=== PATIENT | male | born 1975 | race Caucasian/White ===

== ENCOUNTER → 2017-07-30 | Outpatient (CLI) | payer BC ==
[~2017-07-30] VITALS: Ht 167.6 cm; Wt 113.5 kg
[~2017-07-30] MED LIST: ALDACTONE 100M100 MG PO; GLUCOPHAGE1000 MG PO; LASIX 40MG TABL40 MG PO
[2017-07-30 12:08] VITALS: BP 136/94; PULSE 100
[2017-07-30 12:48] LABS: INR 1.5 (0.8-3.0); PROTHROMBIN TIME 17.1 SECONDS (9.7-12.8)
[2017-07-30 15:20] VITALS: BP 126/79; PULSE 92
[2017-07-30 15:59] LABS: PERITONEAL -POLYMORPHONUCLEAR 6.2 % (0-25); PERITONEAL FLUID RBC 0 /mm3 (0-0)
== END ==
LOC: COL.RAD 11:50
PROVIDERS: Family Medicine; Physician Assistant
DX: K74.60 Unspecified cirrhosis of liver (principal); R18.8 Other ascites; K75.81 Nonalcoholic steatohepatitis (NASH); D69.6 Thrombocytopenia, unspecified; R53.83 Other fatigue; R16.1 Splenomegaly, not elsewhere classified
CPT/HCPCS: 19804

== ENCOUNTER 2017-08-02 09:16 | Day surgery (SDC) | payer BC ==
[~2017-08-02] VITALS: Ht 167.6 cm; Wt 103.4 kg
[2017-08-02 09:56] VITALS: PULSE 89; TEMP 99
[2017-08-02 11:52] VITALS: BP 135/97; PULSE 96; TEMP 97.8
[2017-08-02 12:10] VITALS: BP 137/81; PULSE 91
[2017-08-02 12:40] VITALS: BP 135/91; PULSE 94
[2017-08-02 13:05] VITALS: BP 138/90; PULSE 98
== END 2017-08-02 13:00 | disposition home or self-care (01) ==
LOC: SDCO 09:16
DX: D12.5 Benign neoplasm of sigmoid colon (principal); K57.30 Diverticulosis of large intestine without perforation or abscess without bleeding; K74.60 Unspecified cirrhosis of liver; I85.10 Secondary esophageal varices without bleeding
CPT/HCPCS: J2250; J2405; J3010; J7030

== ENCOUNTER → 2017-08-28 | Outpatient (CLI) | payer BC | LOC: COL.RAD 08:08 | DX: K74.60 Unspecified cirrhosis of liver (principal); R18.8 Other ascites; K75.81 Nonalcoholic steatohepatitis (NASH); R74.8 Abnormal levels of other serum enzymes; K76.6 Portal hypertension; R16.1 Splenomegaly, not elsewhere classified | CPT/HCPCS: A9585 ==

== ENCOUNTER 2017-10-04 10:09 | Day surgery (SDC) | payer BC ==
[~2017-10-04] VITALS: Ht 167.6 cm; Wt 101.7 kg
[~2017-10-04 10:09] MED LIST changes: +L-CARNITINE500 M1 PO; +ZYRTEC 10MG10 MG PO
[2017-10-04 11:00] VITALS: BP 118/70; PULSE 65; TEMP 97.2
[2017-10-04] MEDS ORDERED: CORGARD40 MG PO (11:06)
[2017-10-04 12:40] VITALS: BP 123/79; PULSE 74; TEMP 97.4
[2017-10-04 12:55] VITALS: BP 132/70; PULSE 75
[2017-10-04 13:10] VITALS: BP 127/76; PULSE 76
[2017-10-04 13:19] VITALS: BP 128/83; PULSE 82
== END 2017-10-04 13:40 | disposition home or self-care (01) ==
LOC: SDCO 10:09
DX: I85.00 Esophageal varices without bleeding (principal); K74.60 Unspecified cirrhosis of liver; E11.9 Type 2 diabetes mellitus without complications; D69.6 Thrombocytopenia, unspecified; R16.1 Splenomegaly, not elsewhere classified; K76.0 Fatty (change of) liver, not elsewhere classified; Z79.84 Long term (current) use of oral hypoglycemic drugs
CPT/HCPCS: J2250; J2405; J3010; J7030

== ENCOUNTER 2017-11-22 08:07 | Day surgery (SDC) | payer OTHER ==
[~2017-11-22] VITALS: Ht 167.6 cm; Wt 104.2 kg
[~2017-11-22 08:07] MED LIST changes: +CORGARD40 MG PO
[2017-11-22 08:48] VITALS: BP 108/66; PULSE 61; TEMP 98.1
[2017-11-22 09:35] VITALS: BP 123/86; PULSE 72; TEMP 97.4
[2017-11-22 09:50] VITALS: BP 110/70; PULSE 72
[2017-11-22 10:05] VITALS: BP 111/70; PULSE 63
== END 2017-11-22 10:35 | disposition home or self-care (01) ==
LOC: SDCO 08:07
DX: I85.00 Esophageal varices without bleeding (principal); K74.60 Unspecified cirrhosis of liver; K76.0 Fatty (change of) liver, not elsewhere classified; E11.9 Type 2 diabetes mellitus without complications; D69.6 Thrombocytopenia, unspecified; Z83.71 Family history of colonic polyps; Z87.891 Personal history of nicotine dependence
CPT/HCPCS: OP; J2250; J2405; J3010; J7030

== ENCOUNTER → 2018-02-14 | Outpatient (CLI) | payer OTHER | LOC: COL.RAD 06:59 | DX: K74.60 Unspecified cirrhosis of liver (principal); K76.0 Fatty (change of) liver, not elsewhere classified; D69.6 Thrombocytopenia, unspecified ==

== ENCOUNTER 2018-05-30 08:11 | Day surgery (SDC) | payer OTHER ==
[~2018-05-30] VITALS: Ht 167.6 cm; Wt 114.6 kg
[~2018-05-30 08:11] MED LIST changes: -GLUCOPHAGE1000 MG PO; +GLUCOPHAGE500 MG/TAB PO
[2018-05-30] MEDS ORDERED: VITAMIN A10k PO (08:28)
[2018-05-30] MEDS ORDERED: D3-5050000 IU PO (08:29)
[2018-05-30] MEDS ORDERED: GLUCERNA 240 M240 ML PO (08:30)
[2018-05-30] MEDS ORDERED: OZEMPIC1 MG/0.75 SQ (08:30)
[2018-05-30] MEDS ORDERED: PROBIOTIC FORMU1 CAP PO (08:31)
[2018-05-30 08:58] VITALS: BP 110/64; PULSE 73; TEMP 97.8
[2018-05-30 09:35] VITALS: BP 118/83; PULSE 87; TEMP 97.4
[2018-05-30 09:45] VITALS: BP 115/89; PULSE 92
[2018-05-30 10:00] VITALS: BP 114/78; PULSE 84
[2018-05-30 15:23] VITALS: BP 121/87; PULSE 90
== END 2018-05-30 10:15 | disposition home or self-care (01) ==
LOC: SDCO 08:11
DX: I85.00 Esophageal varices without bleeding (principal); K74.60 Unspecified cirrhosis of liver; Z79.899 Other long term (current) drug therapy; E11.8 Type 2 diabetes mellitus with unspecified complications; D69.6 Thrombocytopenia, unspecified; Z79.84 Long term (current) use of oral hypoglycemic drugs; R16.1 Splenomegaly, not elsewhere classified; K76.0 Fatty (change of) liver, not elsewhere classified; K75.81 Nonalcoholic steatohepatitis (NASH)
CPT/HCPCS: J2250; J3010; J7030

== ENCOUNTER → 2018-06-10 | Outpatient (CLI) | payer OTHER ==
[~2018-06-10] MED LIST changes: +D3-5050000 IU PO; +GLUCERNA 240 M240 ML PO; +OZEMPIC1 MG/0.75 SQ; +PROBIOTIC FORMU1 CAP PO; +VITAMIN A10k PO
== END ==
LOC: COL.RAD 07:23
DX: Z13.89 Encounter for screening for other disorder (principal); K74.60 Unspecified cirrhosis of liver; K75.81 Nonalcoholic steatohepatitis (NASH)

== ENCOUNTER → 2018-12-12 | Outpatient (CLI) | payer OTHER | LOC: COL.RAD 07:54 | DX: K75.81 Nonalcoholic steatohepatitis (NASH) (principal) ==

== ENCOUNTER → 2019-05-28 | Outpatient (CLI) | payer OTHER | LOC: COL.RAD 07:37 | DX: K75.81 Nonalcoholic steatohepatitis (NASH) (principal) ==

== ENCOUNTER 2019-06-12 08:03 | Day surgery (SDC) | payer OTHER ==
[~2019-06-12] VITALS: Ht 167.6 cm; Wt 113.0 kg
[~2019-06-12 08:03] MED LIST changes: -D3-5050000 IU PO; +MASON NATURAL2000 IU PO
[2019-06-12] MEDS ORDERED: INSPRA50 MG PO (08:45)
[2019-06-12 10:10] VITALS: BP 112/82; PULSE 76; TEMP 97.4
--- NOTE | 2019-06-12 10:10 | NUR ---
Patient brought back to bay 4. Alert remains drowsy at this time. Vital signs stable. States he would like some water. Tolerating well. Patients at bedside. Call segundo within reach, will continue to monitor.
[2019-06-12 10:25] VITALS: BP 117/77; PULSE 72
--- NOTE | 2019-06-12 10:25 | NUR ---
Vital signs stable. Patient states he is feeling well. Remains drowsy at this time. remains at bedside. All safety maintained. Will continue to monitor.
[2019-06-12 10:35] VITALS: BP 106/72; PULSE 73; TEMP 97.8
--- NOTE | 2019-06-12 10:40 | NUR ---
Patient states he is feeling ready to go home at this time. Vital signs stable. Will continue to monitor.
[2019-06-12 10:54] VITALS: BP 101/71; PULSE 72
--- NOTE | 2019-06-12 10:55 | NUR ---
Discharge instructions reviewed with patient and family. All questions answered. Patient to get dressed at this time.
--- NOTE | 2019-06-12 11:00 | NUR ---
Patient brought down to lobby via wheel chair. Patient to be driven home by and friend.
== END 2019-06-12 11:00 | disposition home or self-care (01) ==
LOC: SDCO 08:03
DX: K74.60 Unspecified cirrhosis of liver (principal); I85.10 Secondary esophageal varices without bleeding; K76.0 Fatty (change of) liver, not elsewhere classified; E11.9 Type 2 diabetes mellitus without complications; R16.1 Splenomegaly, not elsewhere classified; D69.6 Thrombocytopenia, unspecified; Z88.0 Allergy status to penicillin; Z79.84 Long term (current) use of oral hypoglycemic drugs; Z83.79 Family history of other diseases of the digestive system; Z83.71 Family history of colonic polyps; Z87.891 Personal history of nicotine dependence
CPT/HCPCS: J2250; J3010; J7030

== ENCOUNTER → 2019-12-14 | Outpatient (CLI) | payer OTHER ==
[~2019-12-14] MED LIST changes: +INSPRA50 MG PO
== END ==
LOC: COL.RAD 08:15
DX: K75.81 Nonalcoholic steatohepatitis (NASH) (principal); K74.60 Unspecified cirrhosis of liver

== ENCOUNTER 2019-12-18 08:03 | Day surgery (SDC) | payer OTHER ==
[~2019-12-18] VITALS: Ht 167.6 cm; Wt 108.8 kg
[2019-12-18 08:11] VITALS: BP 138/73; PULSE 77; TEMP 97.8
[2019-12-18] MEDS ORDERED: CANA100T PO (08:19)
[2019-12-18 10:10] VITALS: BP 108/82; PULSE 85; TEMP 97.4
--- NOTE | 2019-12-18 10:10 | NUR ---
Pt returns from procedure to endo bay 7. Pt ambulates from cart to recliner with steady gait and RN assist without complications. Monitors on and alarms set. Call light within reach. Family present in room. Pt requests muffin and ice water. Pt has no complaints except a little soreness in his throat. No reports of nausea. Pt alert and oriented.
[2019-12-18 10:15] VITALS: BP 113/77; PULSE 76
[2019-12-18 10:30] VITALS: BP 98/66; PULSE 80
--- NOTE | 2019-12-18 10:30 | NUR ---
Pt taking food and drink well. No complications voiced by patient.
[2019-12-18 10:45] VITALS: BP 109/79; PULSE 68
--- NOTE | 2019-12-18 10:48 | NUR ---
Discharge instructions given to patient and family. All questions answered to their satisfaction. Handed to them are a thank you card, discharge instructions, diagnosis information, procedural photos, and a discharge med list.
--- NOTE | 2019-12-18 11:05 | NUR ---
Pt transferred out of hospital via wheelchair and Jyotsna, nursing program chair, to waiting vehicle driven by family.
== END 2019-12-18 11:07 | disposition home or self-care (01) ==
LOC: SDCO 08:03
DX: I85.00 Esophageal varices without bleeding (principal); K29.50 Unspecified chronic gastritis without bleeding; K74.60 Unspecified cirrhosis of liver; K75.81 Nonalcoholic steatohepatitis (NASH); D69.6 Thrombocytopenia, unspecified; I10 Essential (primary) hypertension; Z88.0 Allergy status to penicillin; Z79.899 Other long term (current) drug therapy; Z79.84 Long term (current) use of oral hypoglycemic drugs; Z90.89 Acquired absence of other organs
CPT/HCPCS: J2405; J7030

== ENCOUNTER 2020-03-25 07:27 | Day surgery (SDC) | payer OTHER ==
[~2020-03-25] VITALS: Ht 167.6 cm; Wt 109.1 kg
[~2020-03-25 07:27] MED LIST changes: +CANA100T PO
[2020-03-25 07:44] VITALS: BP 101/70; PULSE 71; TEMP 98.6
[2020-03-25] MEDS ORDERED: [UNRECOGNIZED DRUG - OTHER] (08:24)
[2020-03-25 08:55] VITALS: BP 120/79; PULSE 80
--- NOTE | 2020-03-25 08:55 | NUR ---
Patient returns to bay 3 per cart after having EGD. Assisted from cart to recliner with two person assist. IV fluids infusing and site is free of redness. Spouse in room. Surgical masks maintained in place. Patient denies difficulty swallowing or nausea. Given sips of water to drink.
[2020-03-25 09:10] VITALS: BP 122/59; PULSE 78
--- NOTE | 2020-03-25 09:10 | NUR ---
Resting without complaints. IV fluids infusing and spouse in room. Tolerates water. Offered snack and states that he is not hungry and wishes to wait.
[2020-03-25 09:25] VITALS: BP 108/76; PULSE 75
--- NOTE | 2020-03-25 09:25 | NUR ---
Dr. Luciano here to talk with the patient and spouse and all questions answered. IV discontinued and dresses self.
--- NOTE | 2020-03-25 09:35 | NUR ---
Tolerates activiy well and denies nausea. Offered snack and declines.
--- NOTE | 2020-03-25 09:37 | NUR ---
Dismissal instructions given and signed. Provided office number for questions and concerns.
--- NOTE | 2020-03-25 09:40 | NUR ---
Dismissed to home driven by spouse and taken to the front door per wheelchair by this RN and assisted into car with instructions in hand.
== END 2020-03-25 09:40 | disposition home or self-care (01) ==
LOC: SDCO 07:27
DX: I85.00 Esophageal varices without bleeding (principal); K74.60 Unspecified cirrhosis of liver; Z88.0 Allergy status to penicillin; Z79.899 Other long term (current) drug therapy; E11.9 Type 2 diabetes mellitus without complications; Z79.84 Long term (current) use of oral hypoglycemic drugs; R16.1 Splenomegaly, not elsewhere classified; Z83.71 Family history of colonic polyps; Z87.891 Personal history of nicotine dependence; I10 Essential (primary) hypertension; K75.81 Nonalcoholic steatohepatitis (NASH); D69.6 Thrombocytopenia, unspecified
CPT/HCPCS: J2704; J7030

== ENCOUNTER → 2020-06-08 | Outpatient (CLI) | payer OTHER ==
[~2020-06-08] MED LIST changes: +[UNRECOGNIZED DRUG - OTHER]
== END ==
LOC: COL.RAD 09:37
DX: K70.30 Alcoholic cirrhosis of liver without ascites (principal); R16.1 Splenomegaly, not elsewhere classified

== ENCOUNTER 2020-07-01 06:29 | Day surgery (SDC) | payer OTHER ==
[~2020-07-01] VITALS: Ht 167.6 cm; Wt 107.7 kg
[2020-07-01 06:41] VITALS: BP 117/76; PULSE 74; TEMP 98.1
[2020-07-01] MEDS ORDERED: JARDIANCE25 PO (06:52)
[2020-07-01 07:55] VITALS: BP 124/84; PULSE 78; TEMP 97.4
--- NOTE | 2020-07-01 07:55 | NUR ---
PT TRANSPORTED PER CART FROM GI SUITE ACCOMPANIED BY ENDO NURSE TO [facility]. PATIENT UNSTEADY ON HIS FEET AND WOBBLY. PATIENT ASSISTED BY 2 WITH STANDY STAFF THAT MOVED CHAIR TO PIVOTE PATIENT FROM CART TO CHAIR. PATIENT TALKS WITH STAFF AND AT CHAIR SIDE. VSS ON ROOM AIR. 0800 PATIENT GIVEN ORANGE JUICE AND JELLO. PATIENT MORE ALERT.
--- NOTE | 2020-07-01 08:05 | NUR ---
VSS ON ROOM AIR. PATIENT EATS ALITTLE JELLOW AND DRINKS ALITTLE OJ. PATIENT IS HICCUPING. PATIENT THEN HAS AN EMSIS OF JELLO AND OJ. PATIENT ENCOURAGE TO WAIT BEFORE TRYING AGAIN.
[2020-07-01 08:15] VITALS: BP 113/70; PULSE 77
--- NOTE | 2020-07-01 08:20 | NUR ---
VSS ON ROOM AIR. PATIENT HAS ANOTHER EMESIS BUT STATES HE IS FEELING BETTER. AT BEDSIDE ENCOURAGING PATIENT.
--- NOTE | 2020-07-01 08:25 | NUR ---
PATIENT STATES HE IS FEELING BETTER. ALERT AND ORIENTED AND TALKING WITH .
[2020-07-01 08:30] VITALS: BP 113/83; PULSE 57
--- NOTE | 2020-07-01 08:30 | NUR ---
VSS ON ROOM AIR. PATIENT STATES FEELING BETTER. NO HICCUPS. PATIENT DRANK OJ.
--- NOTE | 2020-07-01 08:39 | NUR ---
PATIENT EATS JELLO AND STATES HE IS DOING FINE. DENIES DISCOMFORT AND NAUSEA AT THIS TIME.
[2020-07-01 08:45] VITALS: BP 119/82; PULSE 76
--- NOTE | 2020-07-01 08:50 | NUR ---
VSS ON ROOM AIR. PATIENT STATES HE IS DOING FINE. DISCHARGE INSTRUCTIONS GIVEN VERBAL AND DISCHARGE PACKET GIVEN TO PATIENT. QUESTIONS ANSWERED AND PATIENT VOICED UNDERSTANDING. IV SITE DC'D WITH CATHETER TIP INTACT. PRESSURE AND BANDAGE APPLIED. PATIENT CHANGES INTO STREET CLOTHES.
--- NOTE | 2020-07-01 09:00 | NUR ---
PATIENT DISCHARGED PER WHEEL CHAIR ACCOMPANIED BY AMBULATORY STAFF. DRIVING [facility]. PATIENT ASSISTED TO [facility].
== END 2020-07-01 09:00 | disposition home or self-care (01) ==
LOC: SDCO 06:29
DX: K74.60 Unspecified cirrhosis of liver (principal); I85.10 Secondary esophageal varices without bleeding; K29.30 Chronic superficial gastritis without bleeding; K76.0 Fatty (change of) liver, not elsewhere classified; E11.9 Type 2 diabetes mellitus without complications; R16.1 Splenomegaly, not elsewhere classified; Z87.891 Personal history of nicotine dependence; Z88.0 Allergy status to penicillin; I10 Essential (primary) hypertension; Z79.84 Long term (current) use of oral hypoglycemic drugs
CPT/HCPCS: J2704; J7030

== ENCOUNTER 2020-08-26 06:53 | Day surgery (SDC) | payer OTHER ==
[2020-08-26] VITALS (7 sets, daily range): BP systolic 106–118; BP diastolic 66–83; PULSE 66–83; TEMP 97.7–98.4
[~2020-08-26] VITALS: Ht 167.6 cm; Wt 106.5 kg
[~2020-08-26 06:53] MED LIST changes: +JARDIANCE25 PO
[2020-08-26] MEDS ORDERED: BENTYL 20MG20 MG/TAB PO (08:12)
--- NOTE | 2020-08-26 08:40 | NUR ---
Pt returns from Endo procedure via cart. Pt ambulates from cart to recliner with RN assist. Pt remains tired. present in room. Report received from Endo RN. Call light within reach. Monitors on and alarms set. Pt drowsy, and will wait to offer food and drink. Pt has no complaints of pain or nausea.
--- NOTE | 2020-08-26 09:00 | NUR ---
Pt remains drowsy and resting with no complaints.
--- NOTE | 2020-08-26 09:30 | NUR ---
Pt more alert now and asking for water. Pt on liquid diet only for 24 hours. No complaints voiced from pt.
--- NOTE | 2020-08-26 09:55 | NUR ---
Discharge instructions given to patient and . All questions answered to their satisfaction. Handed to them are discharge instructions, a thank you card, diagnosis information, and a discharge med sheet.
--- NOTE | 2020-08-26 10:02 | NUR ---
Pt transferred out of hospital via wheelchair and ROMMEL Little, to waiting private vehicle driven by pt's .
== END 2020-08-26 10:02 | disposition home or self-care (01) ==
LOC: SDCO 06:53
DX: K63.5 Polyp of colon (principal); I85.10 Secondary esophageal varices without bleeding; K74.60 Unspecified cirrhosis of liver; K29.30 Chronic superficial gastritis without bleeding; G89.29 Other chronic pain; E11.9 Type 2 diabetes mellitus without complications; Z20.828 Contact with and (suspected) exposure to other viral communicable diseases; Z86.010 Personal history of colon polyps; Z88.0 Allergy status to penicillin
CPT/HCPCS: J2704; J7030

== ENCOUNTER → 2020-10-11 | Day surgery (SDC) | payer OTHER ==
[~2020-10-11] MED LIST changes: +BENTYL 20MG20 MG/TAB PO; +[UNRECOGNIZED DRUG - OTHER] PO
== END ==
LOC: SDCO 08:00
DX: U07.1 COVID-19 (principal)

== ENCOUNTER 2020-11-18 07:03 | Day surgery (SDC) | payer OTHER ==
[~2020-11-18] VITALS: Ht 167.6 cm; Wt 108.0 kg
[~2020-11-18 07:03] MED LIST changes: -[UNRECOGNIZED DRUG - OTHER] PO
[2020-11-18 07:37] VITALS: BP 115/83; PULSE 68; TEMP 97.8
[2020-11-18] MEDS ORDERED: [UNRECOGNIZED DRUG - OTHER] PO (07:57)
[2020-11-18 08:45] VITALS: BP 112/80; PULSE 73
--- NOTE | 2020-11-18 08:45 | NUR ---
Pt to GI bay 5 via cart from ENDO. Pt drowsy, and awake. Pt ambulates to recliner with stand by assistance. Warm blanket provided. Water given per pt request. Will continue to monitor.
[2020-11-18 09:00] VITALS: BP 108/80; PULSE 76
--- NOTE | 2020-11-18 09:00 | NUR ---
Pt continues to rest. Tolerating sips of fluids without difficulties. Will continue to monitor. Call light within reach.
[2020-11-18 09:15] VITALS: BP 124/78; PULSE 70
--- NOTE | 2020-11-18 09:15 | NUR ---
Pt continues to rest. Denies needs. Call light within reach.
--- NOTE | 2020-11-18 09:20 | NUR ---
Discharge instructions reviewed. Pt voices understanding. IV site discontinued with all parts intact. Pt up to dress. Will continue to monitor.
--- NOTE | 2020-11-18 09:25 | NUR ---
Pt escorted to private car via wheel chair. Pt accompanied home by his .
== END 2020-11-18 09:25 | disposition home or self-care (01) ==
LOC: SDCO 07:03
DX: I85.10 Secondary esophageal varices without bleeding (principal); K74.60 Unspecified cirrhosis of liver; K29.30 Chronic superficial gastritis without bleeding; K76.0 Fatty (change of) liver, not elsewhere classified; E11.9 Type 2 diabetes mellitus without complications; D69.6 Thrombocytopenia, unspecified; Z87.891 Personal history of nicotine dependence; Z88.0 Allergy status to penicillin; U07.1 COVID-19; Z79.84 Long term (current) use of oral hypoglycemic drugs
CPT/HCPCS: J2704; J7120

== ENCOUNTER → 2021-01-24 | Outpatient (CLI) | payer OTHER ==
[~2021-01-24] MED LIST changes: +[UNRECOGNIZED DRUG - OTHER] PO; +[UNRECOGNIZED DRUG - OTHER] PO
== END ==
LOC: COL.RAD 06:54
DX: K74.60 Unspecified cirrhosis of liver (principal)

== ENCOUNTER 2021-01-27 08:40 | Day surgery (SDC) | payer OTHER ==
[~2021-01-27] VITALS: Ht 167.6 cm; Wt 107.1 kg
[~2021-01-27 08:40] MED LIST changes: -[UNRECOGNIZED DRUG - OTHER] PO
[2021-01-27] MEDS ORDERED: [UNRECOGNIZED DRUG - OTHER] PO (09:00)
[2021-01-27] MEDS ORDERED: JARDIANCE25 PO (09:03)
[2021-01-27] MEDS ORDERED: PROBIOTIC FORMU1 CAP PO (09:07)
[2021-01-27 09:09] VITALS: BP 116/79; PULSE 66; TEMP 98.2
[2021-01-27] MEDS ORDERED: BENTYL 20MG20 MG/TAB PO (09:09)
[2021-01-27 09:55] VITALS: BP 97/73; PULSE 75
--- NOTE | 2021-01-27 09:55 | NUR ---
Pt to GI bay 6 via cart from [facility] [employer]. Pt drowsy, but awake. Pt ambulates to recliner with stand by assistance. in room. Will continue to monitor. Call light within reach. Denies need for food or drink at this time.
[2021-01-27 10:10] VITALS: BP 113/78; PULSE 58
--- NOTE | 2021-01-27 10:10 | NUR ---
Pt continues to rest. Denies needs. Call light within reach.
[2021-01-27 10:25] VITALS: BP 98/74; PULSE 71
--- NOTE | 2021-01-27 10:25 | NUR ---
Pt continues to rest. Denies needs. Call light within reach.
[2021-01-27 10:28] VITALS: BP 116/55; PULSE 58
--- NOTE | 2021-01-27 10:42 | NUR ---
IV site discontinued with all parts intact. Discharge instructions reviewed. Pt voices understanding. Pt escorted to private car via wheel chair. Pt accompanied home by his .
== END 2021-01-27 10:44 | disposition home or self-care (01) ==
LOC: SDCO 08:40
DX: K74.60 Unspecified cirrhosis of liver (principal); I85.10 Secondary esophageal varices without bleeding; K29.30 Chronic superficial gastritis without bleeding; Z88.0 Allergy status to penicillin; I10 Essential (primary) hypertension; Z86.16 Personal history of COVID-19; E11.9 Type 2 diabetes mellitus without complications
CPT/HCPCS: J2704; J7120

== ENCOUNTER → 2021-07-28 | Outpatient (CLI) | payer OTHER ==
[~2021-07-28] MED LIST changes: +[UNRECOGNIZED DRUG - OTHER] PO
== END ==
LOC: COL.RAD 07:30
DX: K74.60 Unspecified cirrhosis of liver (principal)

== ENCOUNTER 2022-02-09 11:34 | Day surgery (SDC) | payer OTHER ==
[~2022-02-09] VITALS: Ht 167.6 cm; Wt 109.4 kg
[2022-02-09 15:15] VITALS: BP 97/72; PULSE 74; TEMP 98.3
[2022-02-09 15:30] VITALS: BP 92/71; PULSE 68
[2022-02-09 15:44] VITALS: BP 109/76; PULSE 66; TEMP 97.8
[2022-02-09 15:45] VITALS: BP 100/73; PULSE 62
[2022-02-09 16:00] VITALS: BP 109/68; PULSE 70
--- NOTE | 2022-02-09 16:08 | NUR ---
1515 Pt returns from endo procedure via cart and RN assist to GI [place] [facility]. Pt ambulates from cart to recliner with RN assist. Monitors on and alarms set. Call light within reach. Report received from ROMMEL Zambrano. Pt alert and oriented. Pt requests water and muffin. Pt denies any pain or nausea. Pt's present in room. 1530 Pt taking food and drink well. No complications noted. 1605 Discharge instructions given to pt and pt's . All questions answered to their satisfaction. Handed to pt are a thank you card and discharge information. 1608 Pt transferred out of the hospital via wheelchair and this RN assist, to private vehicle driven by family.
== END 2022-02-09 16:08 | disposition home or self-care (01) ==
LOC: SDCO 11:34
DX: K74.69 Other cirrhosis of liver (principal); I85.10 Secondary esophageal varices without bleeding; K29.30 Chronic superficial gastritis without bleeding; Z86.16 Personal history of COVID-19
CPT/HCPCS: J7030

== ENCOUNTER → 2022-02-09 | Outpatient (CLI) | payer OTHER | LOC: COL.RAD 11:48 | DX: K74.69 Other cirrhosis of liver (principal); K75.81 Nonalcoholic steatohepatitis (NASH); D69.59 Other secondary thrombocytopenia; I85.10 Secondary esophageal varices without bleeding; R74.8 Abnormal levels of other serum enzymes | CPT/HCPCS: J2704 ==

== ENCOUNTER → 2022-12-18 | Outpatient (CLI) | payer OTHER | LOC: COL.RAD 12:03 | DX: K74.69 Other cirrhosis of liver (principal); K75.81 Nonalcoholic steatohepatitis (NASH); I85.10 Secondary esophageal varices without bleeding; R74.8 Abnormal levels of other serum enzymes; D69.6 Thrombocytopenia, unspecified ==

== ENCOUNTER → 2024-02-20 | Outpatient (CLI) | payer OTHER ==
[~2024-02-20] MED LIST changes: +COREG 3.123.125 MG/T PO; +Iohexol 300 - 100 ML VIAL IV ONE; +NS 100 ML IV SCH; +OZEMPIC1 MG/0.71 SQ; +PROBIOTIC DIGE1 EACH PO; +PROTONIX 40MG T40 MG PO; +ZOFRAN ODT4 MG PO
== END ==
LOC: COL.RAD 06:49
DX: K55.069 Acute infarction of intestine, part and extent unspecified (principal); K76.6 Portal hypertension; R16.1 Splenomegaly, not elsewhere classified; I85.00 Esophageal varices without bleeding; K74.60 Unspecified cirrhosis of liver
CPT/HCPCS: Q9967

== ENCOUNTER 2024-07-02 12:20 | Day surgery (SDC) | payer OTHER ==
[~2024-07-02] VITALS: Ht 167.6 cm; Wt 94.2 kg
[~2024-07-02 12:20] MED LIST changes: +BENTYL 10MG10 MG/CAP PO; -Iohexol 300 - 100 ML VIAL IV ONE; +LR 1,000 ML IV SCH; -NS 100 ML IV SCH; +Ondansetron 4 MG/2 ML VIAL IV PRN
[2024-07-02 12:34] VITALS: BP 120/81; PULSE 106; TEMP 98.1
[2024-07-02] MEDS ORDERED: LASIX 40MG TABL40 MG PO (13:00)
[2024-07-02] MEDS ORDERED: XIFAXAN550 MG PO (13:04)
[2024-07-02] MEDS ORDERED: ELIQUIS 5MG PO (13:07)
--- NOTE | 2024-07-02 13:08 | NUR ---
The patient ambulated back to [place] [facility] independently using a steady gait and appeared to tolerate the activity well. Vital signs obtained. Consent signed. 20G IV started in right hand with one stick, LR infusing without difficulty. Assessment completed. Home medications reconcilled. and friend at bedside. Denies any further needs at this time.
[2024-07-02] MEDS ORDERED: Lidocaine PF 2% (20 MG/ML) 5 ML VIAL ONE (13:57)
[2024-07-02 14:25] VITALS: BP 111/70; PULSE 93; TEMP 98.1
[2024-07-02 14:40] VITALS: BP 115/76; PULSE 100
[2024-07-02 14:55] VITALS: BP 116/78; PULSE 110
--- NOTE | 2024-07-02 15:18 | NUR ---
1425- Pt returns to [facility] bay 4 via cart from procedure. Assisted to recliner chair with assistance of 2, gait steady. Pt with frequent cough, producing clear sputum. Pt and family report that this is common after he gets this procedure. left eye is red, watering. VSS, monitors applied. IV fluids infusing into right hand. Wilkinson juice and sugar free jello given per request. Bedside handoff received from ROMMEL Montano. 1445- Discharge instructions and education given to patient and family. Questions answered. Dr. Luciano at bedside to answer questions. 1500- Pt up to get dressed without issue. 1505- IV site removed 1506- Pt discharges via w/c to family car, escorted by ROMMEL Zambrano. Pt denies any complaints at this time. Cough has calmed. Eye not watering, pt reports no further irritation.
== END 2024-07-02 15:06 | disposition home or self-care (01) ==
LOC: SDCO 12:20
DX: I85.00 Esophageal varices without bleeding (principal); K74.60 Unspecified cirrhosis of liver; R18.8 Other ascites
CPT/HCPCS: J2704; J7120

== ENCOUNTER 2024-08-06 13:07 | Day surgery (SDC) | payer OTHER ==
[~2024-08-06] VITALS: Ht 167.6 cm; Wt 91.0 kg
[~2024-08-06 13:07] MED LIST changes: +ELIQUIS 5MG PO; +XIFAXAN550 MG PO
[2024-08-06] MEDS ORDERED: LASIX 20MG TABL20 MG PO (14:37)
[2024-08-06] MEDS ORDERED: K-DUR20 MEQ PO (14:50)
[2024-08-06 14:54] VITALS: BP 121/88; PULSE 88; TEMP 98.4
[2024-08-06] MEDS ORDERED: Lidocaine PF 2% (20 MG/ML) 5 ML VIAL ONE (15:07)
[2024-08-06 15:30] VITALS: BP 112/75; PULSE 102; TEMP 98.2
[2024-08-06 15:45] VITALS: BP 111/79; PULSE 96
--- NOTE | 2024-08-06 16:02 | NUR ---
1530 RETURNS TO ROOM 5 PER CART. DROWSY, AROUSES SPONTANEOUSLY. RESP UNLABORED. AMBULATES TO RECLINER WITH STANDBY ASSIST. DENIES DISCOMFORT OR DYSPHAGIA. VITAL SIGNS OBTAINED. CALL LIGHT AT SIDE. IN ROOM 1537 DR WALDROP HERE TO VISIT WITH PATIENT 1545 TOLERATES PO WATER. SWALLOWS WITHOUT DIFFICULTY. DISCHARGE INSTRUCTIONS REVIEWED. PATIENT AND VERBALIZE UNDERSTANDING. COPY PROVIDED IN DISCHARGE FOLDER
== END 2024-08-06 16:02 | disposition home or self-care (01) ==
LOC: SDCO 13:07
DX: K74.60 Unspecified cirrhosis of liver (principal); I85.10 Secondary esophageal varices without bleeding; R18.8 Other ascites; Z79.01 Long term (current) use of anticoagulants
CPT/HCPCS: J2704; J7120